=== PATIENT | male | born 1990 | race Caucasian/White ===

== ENCOUNTER 2020-12-09 10:25 | Emergency (ER) | payer SELFPAY ==
[2020-12-09 10:49] VITALS: BP 125/67; PULSE 90; RESP 17; TEMP 37.5; O2SAT 98; BMI 37.6
[2020-12-09 10:55] VITALS: BP 125/67; PULSE 78; RESP 16; TEMP 37.5; O2SAT 97
--- NOTE | 2020-12-09 10:56 | W.ED.EXTPRO ---
HPI - Extremity Problem General: Chief complaint: Extremity Injury, Upper Stated complaint: L HAND LAC Time Seen by Provider: 12/09/20 10:27 History of Present Illness: HPI Narrative: Patient is a 30-year-old male who comes to the ED with a laceration on left hand. Patient says he was using a switch box installer to remove the plastic straps around a box And He Accidentally the dorsal side of left hand. Patient says that the blade was a new blade on a switch box installer and the first time he used it. After cut he rinsed it out with water and then applied hydrogen peroxide on the laceration and some Neosporin. Patient says he is up-to-date on his tetanus shot. Associated symptoms: Deny chest pain, fever(s) or rash Review of Systems Const: Denies: fever(s), chills or fatigue Eyes: Denies: change in vision or eye discomfort ENMT: Denies: throat pain, odynophagia, nasal discharge or nasal congestion Card: Denies: chest pain, palpitations, edema, swelling of feet/ankles, dyspnea on exertion or orthopnea Resp: Denies: dyspnea, productive cough or non-productive cough GI: Denies: abdominal pain, nausea, vomiting, diarrhea, constipation or hematochezia : Denies: flank pain, difficulty urinating, dysuria or hematuria Musc: Denies: neck pain, back pain or extremity swelling Skin/Breast: Reports: new lesions (Left hand laceration.); Denies: rash Neuro: Denies: headache(s), numbness in extremities or weakness in extremities Physical Exam Const: COMMON NORMALS: no acute distress, patient oriented x3, healthy appearing and alert GENERAL APPEARANCE: cooperative and comfortable HENMT: COMMON NORMALS: normocephalic HEAD & SCALP: normocephalic MOUTH: Normal oral and palatal mucosa present THROAT: posterior oropharynx normal and uvula midline Neck/C-Spine: COMMON NORMALS: supple GENERAL: Yes normal visual inspection Resp: COMMON NORMALS: normal respiratory effort, No retractions, No use of accessory muscles and clear to auscultation bilaterally AUSCULTATION: clear to auscultation bilaterally Cardio: COMMON NORMALS: regular rate, regular rhythm, S1 normal heart sound present, S2 normal heart sound present, No gallops present (Cardio), No clicks present (Cardio), No murmurs present (Cardio) and Peripheral pulses 2+ throughout RATE: regular rate RHYTHM: regular rhythm HEART SOUNDS: S1 normal heart sound present and S2 normal heart sound present PERIPHERAL PULSES: Peripheral pulses 2+ throughout GI: COMMON NORMALS: Normal to inspection, nondistended, normoactive bowel sounds present, Soft to palpation, non-tender and no masses PALPATION: Yes Soft to palpation : COMMON NORMALS: Yes no CVA tenderness BLADDER/KIDNEY EXAM: Yes no CVA tenderness Back/Pelvis: COMMON NORMALS: no CVA tenderness Extremity: COMMON NORMALS: full ROM NARRATIVE EXTREMITY EXAM: Left hand?dorsal aspect?1 cm linear and superficial laceration. No active bleeding, contaminants or foreign body seen. Full range of motion in hand and fingers. Neurovascular tact. GENERAL: Yes normal exam except as noted Neuro: COMMON NORMALS: patient oriented x3 and moves all extremities SENSORIUM/ORIENTATION: Yes alert Skin: NARRATIVE SKIN EXAM: Left hand?dorsal aspect?1 cm linear and superficial laceration. No active bleeding, contaminants or foreign body seen. GENERAL SKIN EXAM: dry skin Procedures Laceration Laceration 1: Site: hand (dorsal aspect inbetween digits 1 and 2.) Side (If applicable): left Size (cm): 1 Description: linear and clean Depth: simple, single layer Local Anesthetic: lidocaine 1% and with epi Amount of anesthesia used (mL): 10 Pre-repair: irrigated extensively (With normal saline and skin was cleaned with CHG swab.) Skin layer closed with: nylon Size (cm): 4-0 Number of sutures: 3 Technique: simple, interrupted Course Vital Signs: Vital signs: Vital Signs Temperature 99.5 F 12/09/20 10:55 Pulse Rate 91 12/09/20 11:29 Respiratory Rate 16 12/09/20 10:55 Blood Pressure 126/66 12/09/20 11:29 Pulse Oximetry 97 12/09/20 11:29 MDM - Extremity (Nontraumatic) MDM Narrative: Medical decision making narrative: Patient is a 30-year-old male comes to the ED with superficial 1 cm linear laceration to dorsal aspect of left hand. Patient neurovascular intact and full range of motion in left hand and fingers. Laceration was irrigated extensively with normal saline and cleaned with CHG swab. Lidocaine 1% with epi was used as local and 3 sutures were placed to close the wound. Patient said he is up-to-date on his tetanus. Patient was diagnosed with laceration and discharged home with a prescription for cephalexin. Return to ED precautions given. He was told to have sutures removed in 7 to 10 days at PCP. Patient was instructed on how to care for laceration site. Patient understood and agreed with plan. Discharge Plan Discharge Patient Disposition: Home Clinical Impression: Laceration of hand, left Qualifiers: Encounter type: initial encounter Foreign body presence: without foreign body Qualified Code(s): S61.412A - Laceration without foreign body of left hand, initial encounter Condition: Stable Prescriptions: New cephalexin 500 mg capsule 500 mg PO Q6H 4 Days Qty: 16 RF: 0 Discharge Orders: Discharge ED (Routine); Ordered 12/09/20 Ordered By: Hammad Cardenas Discharge Diet: Regular Discharge Activity: Resume usual activity Patient Instructions: Laceration (DC) Activity Restrictions/Additional Instructions: Take full course of antibiotics as prescribed. Keep laceration site clean and dry for the next 48 hours. Then after that you can clean and re-bandage daily. Watch for signs of infection such as redness, warmth, increased tenderness and puslike drainage. If you see the signs of infection return to the ED, urgent care or PCP for reevaluation. call your PCP to schedule a follow-up appointment for reevaluation and suture removal in about 7 days. Continue taking all home meds. Follow discharge plans as discussed. You can return to the ED if symptoms worsen. Coding Level of Care Code ED Informatics Manager for Savannah Weber Exam Comprehensive
[2020-12-09 11:29] VITALS: BP 126/66; PULSE 91; O2SAT 97
== END 2020-12-09 11:29 | disposition home or self-care (01) ==
PROVIDERS: Emergency Provider Physician Assistant
DX: S61.412A Laceration without foreign body of left hand, initial encounter (principal); W26.0XXA Contact with knife, initial encounter
CPT/HCPCS: 12001; 99282